=== PATIENT | male | born 1965 | race Caucasian/White ===

== ENCOUNTER 2022-05-24 13:03 | Day surgery (SDC) | payer SELFPAY ==
[2022-05-24] MEDS ORDERED: HYDROmorphone 0.5 MG/0.5 ML SYRINGE ONE ×2 (14:55→16:40)
[2022-05-24] MEDS ORDERED: Bupivacaine HCl 0.5%/Epinephrine 1:200,000/PF 30 ml Vial ONE (15:33)
[2022-05-24] MEDS ORDERED: Lidocaine 2% PF 5 ML VIAL ONE (15:33)
[2022-05-24] MEDS ORDERED: Lidocaine 1% PF 5 ML VIAL ONE (15:33)
[2022-05-24] MEDS ORDERED: Bupivacaine/Epinephrine 0.25% 30 ML VIAL ONE (15:33)
[2022-05-24] MEDS ORDERED: Ketorolac Tromethamine 30 MG/ML VIAL ONE (15:43)
[2022-05-24] MEDS ORDERED: Sodium Chloride 0.9% 100 ML ONE (16:28)
[2022-05-24] MEDS ORDERED: CEFAZOLIN 2 GM VIAL ONE (16:28)
[2022-05-24] MEDS ORDERED: PHENYLEPHRINE-NS 100 MCG/ML 10 ML SYRINGE ONE (16:56)
[2022-05-24] MEDS ORDERED: Ondansetron PF 4 MG/2 ML Vial ONE (16:56)
[2022-05-24] MEDS ORDERED: Dexamethasone 20 MG/5 ML VIAL ONE (16:56)
[2022-05-24] MEDS ORDERED: ePHEDrine 50 MG/ML VIAL ONE (16:56)
[2022-05-24] MEDS ORDERED: Succinylcholine Chloride 100 MG/5 ML SYRINGE FS ONE (16:56)
[2022-05-24] MEDS ORDERED: PROPOFOL 200 MG/20 ML VIAL ONE (16:56)
[2022-05-24] MEDS ORDERED: Fentanyl 100 MCG/2 ML VIAL ONE (18:52)
[2022-05-24] MEDS ORDERED: HYDROcodone/Acetaminophen 5/325 mg Tablet ONE (18:58)
== END 2022-05-24 19:28 | disposition home or self-care (01) ==
LOC: SDC 13:03
PROVIDERS: ATTEND Specialist
PROC: 0YU50JZ Supplement Right Inguinal Region with Synthetic Substitute, Open Approach (ICD-10-PCS; principal; 2022-05-24)
DX: K40.30 Unilateral inguinal hernia, with obstruction, without gangrene, not specified as recurrent (principal)
CPT/HCPCS: C1781; J1100; J1170; J1885; J2001; J2405; J2704; J3010; J3490